=== PATIENT | female | born 1965 | race Caucasian/White ===

== ENCOUNTER 2016-08-22 17:19 | Emergency (ER) | payer MEDICAID ==
[2016-08-22] MEDS ORDERED: KETOROLAC 30 MG/ML VIAL ONE (19:01)
[2016-08-22] MEDS ORDERED: SODIUM CHLORIDE 0.9% 1,000 ML ONE (19:01)
[2016-08-22] MEDS ORDERED: DILAUDID 1 MG/ML AMP ONE (19:36)
== END 2016-08-22 20:46 | disposition home or self-care (01) ==
LOC: ER 17:19
DX: R10.12 Left upper quadrant pain (principal); R10.32 Left lower quadrant pain; R10.9 Unspecified abdominal pain; E03.9 Hypothyroidism, unspecified; I10 Essential (primary) hypertension; Z79.899 Other long term (current) drug therapy
CPT/HCPCS: 36415; 74176; 80053; 81001; 82553; 83690; 84484; 85025; 93005; 96361; 96374; 96375